=== PATIENT | female | born 1965 | race African-American/Black ===

== ENCOUNTER → 2016-10-30 | Outpatient (CLI) | payer MEDICARE, OTHER ==
[2016-10-30 15:50] LABS: Hepatitis B Surface Ag Index 0.06
[2016-10-30 15:55] LABS: Hepatitis B Core IgM Index 0.04
[2016-10-30 16:07] LABS: Hepatitis C Virus IgG Index 0.03
[2016-10-30 16:14] LABS: Hepatitis C Virus IgG Ab Negative (Negative)
[2016-11-01 07:24] LABS: HIV-1/HIV-2 Ab Screen NONREAC (NON REAC)
== END | disposition home or self-care (01) ==
LOC: LABWHC1 14:38
PROVIDERS: ATTEND Obstetrics & Gynecology
DX: Z11.3 Encounter for screening for infections with a predominantly sexual mode of transmission (principal)
CPT/HCPCS: 36415; 80074; 86780; 87389